=== PATIENT | male | born 1935 | race Caucasian/White ===

== ENCOUNTER 2020-01-24 16:26 | Emergency (ER) | payer OTHER ==
[~2020-01-24] VITALS: Ht 177.8 cm; Wt 67.1 kg
--- NOTE | 2020-01-24 16:45 | NUR ---
BIB RA 39, FOUND HOLDING ON TO A FENCE IN HOT WHEATHER CONDITION. ON ROOM AIR, BREATHING EVENLY AND UNLABORED. CONNECTED TO THE MONITOR AND PULSE OX. KEPT COMFORTABLE, WILL CONTINUE TO MONITOR ACCORDINGLY.
[2020-01-24 17:23] LABS: BASOPHILS % (AUTO) 0.8 % (0.0-2.0); EOSINOPHILS % (AUTO) 1.6 % (0.0-6.0); HEMATOCRIT 42 % (39-51); HEMOGLOBIN 13.6 g/dL (13.5-17.5); LYMPHOCYTES # (AUTO) 1.5 /CMM (0.8-4.8); LYMPHOCYTES % (AUTO) 25.4 % (20.0-44.0); MEAN CORPUSCULAR HGB CONC 33 g/dl (31.0-36.0); MEAN CORPUSCULAR VOLUME 88 fL (80-96); MONOCYTES # (AUTO) 0.4 /CMM (0.1-1.30); MONOCYTES % (AUTO) 6.6 % (2.0-12.0); NEUTROPHILS # (AUTO) 3.8 /CMM (1.8-8.9); NEUTROPHILS % (AUTO) 65.6 % (43.0-81.0); PLATELET COUNT (AUTO) 223 /CMM (150-450); RED BLOOD CELL COUNT(AUTO) 4.72 MIL/uL (4.5-6.0); WHITE BLOOD COUNT (AUTO) 5.8 K/uL (4.3-11.0)
[2020-01-24 17:26] LABS: CALCIUM, SERUM 8.9 mg/dL (8.5-10.1); CARBON DIOXIDE 24 mmol/L (21-32); CHLORIDE 107 mmol/L (98-107); CREATININE 1.2 mg/dL (0.6-1.3); GLUCOSE 107 mg/dL (74-106); POTASSIUM 4.6 mmol/L (3.5-5.1); SODIUM SERUM 140 mmol/L (136-145); UREA NITROGEN, BLOOD 35 mg/dL (7-18)
[2020-01-24] MEDS ORDERED: IV NS 0.9% 500 ML BAG IV ONE ×2 (17:30→19:30)
[2020-01-24 17:32] LABS: ALANINE AMINOTRANSFERASE 14 U/L (12-78); ALBUMIN 3.6 g/dL (3.4-5.0); ALKALINE PHOSPHATASE 53 U/L (46-116); ASPARTATE AMINOTRANSFERASE 16 U/L (15-37); BILIRUBIN,DIRECT 0.1 mg/dL (0.0-0.2); BILIRUBIN,TOTAL 0.6 mg/dL (0.2-1.0); TOTAL PROTEIN, SERUM 7.5 g/dL (6.4-8.2)
[2020-01-24 17:38] LABS: B-TYPE NATRIURETIC PEPTIDE 569 PG/ML (0-125)
[2020-01-24 18:04] LABS: APPEARANCE,URINE Clear (CLEAR); BILIRUBIN,URINE Negative (NEGATIVE); BLOOD, URINE Negative Ery/uL (NEGATIVE); COLOR,URINE Yellow (YELLOW); KETONES,URINE Negative (NEGATIVE); LEUKOCYTE ESTERASE ,URINE Negative (NEGATIVE); NITRITE, URINE Negative (NEGATIVE); PROTEIN,URINE Negative (NEGATIVE); UGLUCOSE Negative (NEGATIVE); UROBILINOGEN,URINE 0.2 EU/dL (0.2)
--- NOTE | 2020-01-24 19:17 | NUR ---
PT HAS [employer] INSURANCE GAVE MOVESHEET TO ADMITTING
--- NOTE | 2020-01-24 19:24 | NUR ---
Endorsed to next RN for katie.
--- NOTE | 2020-01-24 19:50 | NUR ---
COVID SWAB COLLECTED AND SENT TO LAB
--- NOTE | 2020-01-24 20:04 | NUR ---
PER KAHLIL THURSTON BULL RIDER PT SHE IS WORKING ON TRANSFERRING PT TO [facility].
[2020-01-24 20:12] LABS: CREATINE KINASE, TOTAL 104 U/L (39-308)
--- NOTE | 2020-01-24 20:53 | NUR ---
LAB CALLED REGARDING NEGATIVE COVID RESULT
--- NOTE | 2020-01-24 21:43 | NUR ---
CALL FROM BERTRAND WASHROOM OPERATOR. PT ACCEPTED TO [facility]. ROOM 449. #[phone]
--- NOTE | 2020-01-24 21:44 | NUR ---
[facility] ETA [id number]
--- NOTE | 2020-01-24 22:05 | NUR ---
report given to Sallie at [facility] . pt going to rm [phone]
--- NOTE | 2020-01-24 22:43 | NUR ---
[facility] AT BED SIDE TO DIRECTOR ON AIR THE PT. REPORT GIVEN /
--- NOTE | 2020-01-24 23:07 | NUR ---
while paramedics at bed side to transfer the pt, pt claimed he is doinf ok and he does not want to be at either hospital ([place] or [place]) and he just wanna leave. pt is alert, awake and oriented x 4. reported he is living with his "lady friend". knows his address and said "i have 300 dollar in my pocket" to go home with. road test done. pt ambulatory with steady gaits. pt refused the offer to assist w/ taxi. Dr. montesinos made aware . pt signed the AMA form and left the hospital against medical advice . Prior to discharge, IV was removed. Catheter intact and site benign. Pressure and 4x4 applied to site. No bleeding noted.
[2020-01-24 23:14] VITALS: BP 99/58
== END 2020-01-24 23:16 | disposition left against medical advice (07) ==
LOC: ER 16:29
DX: E86.0 Dehydration (principal); R41.82 Altered mental status, unspecified; F17.200 Nicotine dependence, unspecified, uncomplicated; R91.8 Other nonspecific abnormal finding of lung field; Z20.828 Contact with and (suspected) exposure to other viral communicable diseases
CPT/HCPCS: 36415; 70450; 71045; 80048; 80076; 81001; 82550; 83605; 83880; 84484; 85025; 87081; 87086; 87426; 93005; 96360; 99285; C9803; J7030; J7040; 81000-TC

== ENCOUNTER 2020-05-27 04:39 | Inpatient (IN) | payer MEDICARE, OTHER ==
[~2020-05-27] VITALS: Ht 165.1 cm; Wt 64.5 kg
--- NOTE | 2020-05-27 05:18 | NUR ---
pt moved to [facility] and connected to monitor. vss. pt not a reliable historian. ao to name and . 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 per ra "friend in apartment states he has dementia" noted rr even and unalbored. no sob noted. no nvd at this time. no acute distress noted. pt waiting for md cavanaugh.
--- NOTE | 2020-05-27 06:39 | NUR ---
pt moved er bed 11. sitter within line of sight.
--- NOTE | 2020-05-27 07:12 | NUR ---
pt appears comfortable. sleeping, easily arousable. sitter within line of sight.
--- NOTE | 2020-05-27 07:34 | NUR ---
REPORT GIVEN TO TIN ROMERO FOR CONTINUITY OF CARE. NO ACUTE DISTRESS NOTED.
--- NOTE | 2020-05-27 10:00 | NUR ---
pt is is altered. obtained 2 phone # but nobody is picking up. unable to verify adress.
--- NOTE | 2020-05-27 12:58 | NUR ---
patient altered so unable to verify address.
--- NOTE | 2020-05-27 13:01 | NUR ---
CALLED [phone] (NO ANSWER, LEFT VM), KYLEO CALLED [phone] (# NO LONGER AVAILABLE)
--- NOTE | 2020-05-27 16:28 | NUR ---
patient awake and able to converse but unable to verify address.
--- NOTE | 2020-05-27 16:38 | NUR ---
CALLED [phone] (NO ANSWER, LEFT VM)
--- NOTE | 2020-05-27 17:44 | NUR ---
PATIENT UNABLE TO GIVE ADDRESS. SAYS "I DON'T KNOW" WHEN ASKED
--- NOTE | 2020-05-27 18:39 | NUR ---
PATIENT BROUGHT VIA GURNEY TO CT SCAN
[2020-05-27 18:46] LABS: BASOPHILS % (AUTO) 0.6 % (0.0-2.0); HEMATOCRIT 42 % (39-51); HEMOGLOBIN 14.3 g/dL (13.5-17.5); LYMPHOCYTES # (AUTO) 0.9 /CMM (0.8-4.8); LYMPHOCYTES % (AUTO) 17.8 % (20.0-44.0); MEAN CORPUSCULAR HGB CONC 34 g/dl (31.0-36.0); MEAN CORPUSCULAR VOLUME 87 fL (80-96); MONOCYTES # (AUTO) 0.6 /CMM (0.1-1.30); MONOCYTES % (AUTO) 11.5 % (2.0-12.0); NEUTROPHILS # (AUTO) 3.6 /CMM (1.8-8.9); NEUTROPHILS % (AUTO) 70.1 % (43.0-81.0); PLATELET COUNT (AUTO) 156 /CMM (150-450); RED BLOOD CELL COUNT(AUTO) 4.86 MIL/uL (4.5-6.0); WHITE BLOOD COUNT (AUTO) 5.1 K/uL (4.3-11.0)
[2020-05-27 19:18] LABS: CALCIUM, SERUM 8.3 mg/dL (8.5-10.1); CARBON DIOXIDE 28 mmol/L (21-32); CHLORIDE 100 mmol/L (98-107); CREATININE 1.2 mg/dL (0.6-1.3); GLUCOSE 89 mg/dL (74-106); POTASSIUM 4.7 mmol/L (3.5-5.1); SODIUM SERUM 134 mmol/L (136-145); UREA NITROGEN, BLOOD 26 mg/dL (7-18)
[2020-05-27] MEDS ORDERED: QUET25TA PO (19:19)
[2020-05-27] MEDS ORDERED: BISA10SU11 RC (19:19)
[2020-05-27] MEDS ORDERED: TAMS-12 PO (19:19)
--- NOTE | 2020-05-27 19:20 | NUR ---
CALLED LAB FOR COVID SWAB
--- NOTE | 2020-05-27 19:20 | NUR ---
ENDORSEMENT GIVEN TO JACKI CASTLE FOR DUNG
[2020-05-27] MEDS ORDERED: LIDOCAINE 2% JEL UROJET 10 ML MM ONE (19:27)
[2020-05-27 19:31] LABS: ALANINE AMINOTRANSFERASE 14 U/L (12-78); ALBUMIN 3.1 g/dL (3.4-5.0); ALCOHOL, BLOOD < 3 mg/dL (0-0); ALKALINE PHOSPHATASE 60 U/L (46-116); ASPARTATE AMINOTRANSFERASE 15 U/L (15-37); BILIRUBIN,DIRECT 0.3 mg/dL (0.0-0.2); BILIRUBIN,TOTAL 0.8 mg/dL (0.2-1.0); TOTAL PROTEIN, SERUM 7.2 g/dL (6.4-8.2)
[2020-05-27 19:36] LABS: ACETAMINOPHEN 0 ug/ml (10-30)
--- NOTE | 2020-05-27 19:42 | NUR ---
URINE COLLECTED AND SENT TO LAB
--- NOTE | 2020-05-27 19:42 | NUR ---
COVID SWAB SENT TO LAB
[2020-05-27 19:46] LABS: BILIRUBIN,URINE NEGATIVE (NEGATIVE); COLOR,URINE YELLOW (YELLOW); LEUKOCYTE ESTERASE ,URINE NEGATIVE (NEGATIVE); NITRITE, URINE NEGATIVE (NEGATIVE); PROTEIN,URINE TRACE mg/dl (NEGATIVE); UGLUCOSE NEGATIVE (NEGATIVE)
[2020-05-27] MEDS ORDERED: HALOPERIDOL LACTATE INJ 5 MG/ML VIAL ONE (19:59)
[2020-05-27] MEDS ORDERED: diphenhydrAMINE HCL 50 MG/ML VIAL IM ONE (20:00)
[2020-05-27] MEDS ORDERED: HALOPERIDOL LACTATE INJ 5 MG/ML VIAL IM ONE (20:00)
[2020-05-27] MEDS ORDERED: IV NS 0.9% 1,000 ML IV ONE (20:00)
[2020-05-27] MEDS ORDERED: LORAZEPAM INJ 2 MG/ML VIAL ONE (20:01)
[2020-05-27] MEDS ORDERED: diphenhydrAMINE HCL 50 MG/ML VIAL ONE (20:02)
[2020-05-27 20:04] LABS: BACTERIA,URINE Few /HPF (None Seen); SQUAMOUS EPITHELIAL CELL,UR Rare /HPF (None Seen)
--- NOTE | 2020-05-27 20:46 | NUR ---
LAB CALLED REGARDING POSITIVE COVID RESULT
--- NOTE | 2020-05-27 22:02 | NUR ---
ATTEMPTED TO CONTACT DR. DE LA TORRE REGARDING ADMISSION. PER DR. DE LA TORRE, NOT DROP CREW LABORER. WILL CALL ANSWER SERVICE ([phone])
--- NOTE | 2020-05-27 22:09 | NUR ---
DR. BOYD SPEAKING WITH DR. HAWKINS
--- NOTE | 2020-05-27 23:28 | NUR ---
PT REPOSITIONED TO LEFT SIDE FOR COMFORT. VSS. NAD NOTED.
--- NOTE | 2020-05-28 01:47 | NUR ---
PT ON SUPINE POSITION FOR COMFORT. VSS. NAD NOTED
--- NOTE | 2020-05-28 03:07 | NUR ---
INFORMED DR HAWKINS REGARDING PT'S CHANGE OF CONDITION, HR IN THE 150'S. ORDER BY DR HAWKINS TO START ON AMIODARONE DRIP, PHARMACY TO DOSE.
--- NOTE | 2020-05-28 03:16 | NUR ---
CALLED OVERNIGHT PHARMACYFIORELLA FOR ORDER VERIFICATION
[2020-05-28] MEDS ORDERED: AMIODARONE 150 MG/3 ML VIAL IV ONE ×3 (03:20→03:35)
[2020-05-28] MEDS ORDERED: AMIODARONE 900 MG in IV D5W 482 ML IV PRN (03:30)
[2020-05-28] MEDS ORDERED: AMIODARONE 150 MG in IV D5W 100 ML IV ONE ×2 (03:30→07:30)
--- NOTE | 2020-05-28 03:50 | NUR ---
AMIODARONE 150 MG IV GIVEN OVER [address] YAN'S ORDER. OVERNIGHT PHARMACY VERIFIED DOSAGE.
[2020-05-28] MEDS ORDERED: ONDANSETRON HCL/PF 4 MG/2 ML VIAL IV PRN (04:00)
[2020-05-28] MEDS ORDERED: HYDROCODONE/APAP 5/325MG TABLET PO PRN (04:00)
--- NOTE | 2020-05-28 06:12 | NUR ---
PT REPOSITIONED TO RIGHT SIDE FOR COMFORT. VSS. NAD NOTED.
[2020-05-28 06:37] LABS: BASOPHILS # (AUTO) 0.1 /CMM (0.0-0.2); BASOPHILS % (AUTO) 0.9 % (0.0-2.0); HEMATOCRIT 42 % (39-51); HEMOGLOBIN 14.2 g/dL (13.5-17.5); LYMPHOCYTES # (AUTO) 0.8 /CMM (0.8-4.8); LYMPHOCYTES % (AUTO) 12.3 % (20.0-44.0); MEAN CORPUSCULAR HGB CONC 34 g/dl (31.0-36.0); MEAN CORPUSCULAR VOLUME 87 fL (80-96); MONOCYTES # (AUTO) 0.8 /CMM (0.1-1.30); MONOCYTES % (AUTO) 11.6 % (2.0-12.0); NEUTROPHILS % (AUTO) 75.2 % (43.0-81.0); PLATELET COUNT (AUTO) 145 /CMM (150-450); RED BLOOD CELL COUNT(AUTO) 4.86 MIL/uL (4.5-6.0); WHITE BLOOD COUNT (AUTO) 6.6 K/uL (4.3-11.0)
[2020-05-28 06:52] LABS: ALBUMIN 2.6 g/dL (3.4-5.0); CALCIUM, SERUM 7.8 mg/dL (8.5-10.1); CREATININE 1.1 mg/dL (0.6-1.3); POTASSIUM 4.2 mmol/L (3.5-5.1); TOTAL PROTEIN, SERUM 6.4 g/dL (6.4-8.2)
[2020-05-28 07:25] LABS: C-REACTIVE PROTEIN 7.2 mg/dL (0.0-0.9)
[2020-05-28] MEDS ORDERED: AMIODARONE 450 MG in IV D5W 250 ML IV PRN (07:30)
[2020-05-28] MEDS ORDERED: BISACODYL SUPP (10 MG) 10 MG/SUPP.RECT SUPP.RECT RC PRN (09:30)
[2020-05-28] MEDS ORDERED: DEXAMETHASONE SOD PHOSPHATE 4 MG/ML VIAL IV SCH (10:00)
[2020-05-28 10:12] LABS: ABG PCO2 27.2 mmHg (35.0-45.0); ABG PH 7.429 (7.350-7.450); ABG PO2 66.2 mmHg (75.0-100.0); COHb 0.4 % (0.5-1.5); MetHb 0.5 % (0.0-1.5); O2Hb 92.2 % (94.0-97.0); SITE, ABG Right Radial; VENT MODE, BG room air
--- NOTE | 2020-05-28 13:34 | NUR ---
Boiler Water Tester Note: Pt is an 84 year old male who was admitted to [facility] on 05/28/20 due to acute encepalopathy. Pt is demented and was oriented x1. Pt was also covid positive so SW maintained a safe distance. SW was not able to properly assess the pt due to his condition so SW looked through the pts chart. Pt was positive for methamphetamines so SW included substance abuse referrals in the pts chart.
--- NOTE | 2020-05-28 19:49 | NUR ---
pt cleaned and turned and repositioned. pt connected to monitor. pt appears comfortable no acute distress noted.
[2020-05-28] MEDS: AMIODARONE HCL 200 MG TABLET PO SCH (21:04)
[2020-05-28] MEDS: TAMSULOSIN 0.4 MG CAP.SR.24H PO SCH (21:05)
--- NOTE | 2020-05-28 21:05 | NUR ---
PT MEDICATED ORDERED. PT DENIES PAIN OR DISCOMFORT AT THIS TIME. NO ACUTE DISTRESS NOTED, RESP EVEN AND UNLABORED. CALL LIGHT WITHIN REACH. WILL CONTINUE TO MONITOR PT.
--- NOTE | 2020-05-28 22:16 | NUR ---
ORAL CARE DONE, REPOSITIONED PT.
--- NOTE | 2020-05-29 03:51 | NUR ---
TOTAL PT CARE DONE, LARGE AMOUT OF SOFT BM NOTED. PT REMAINS ON CARDIAC MONITORING, CONTINUOUS POX. CALL LIGHT WITHIN REACH WILL CONITNUE TO MONITOR PT CLOSELY.
--- NOTE | 2020-05-29 05:49 | NUR ---
PT ASLEEP, NO ACUTE DISTRESS NOTED, RESP EVEN AND UNLABORED. PT REMAINS ON CARDIAC MONITORING, CONTINUOUS POX. CALL LIGHT WITHIN REACH. WILL CONTINUE TO MONITOR PT CLOSELY.
[2020-05-29 05:54] LABS: BASOPHILS % (AUTO) 0.3 % (0.0-2.0); HEMATOCRIT 42 % (39-51); LYMPHOCYTES # (AUTO) 0.7 /CMM (0.8-4.8); MEAN CORPUSCULAR HGB CONC 34 g/dl (31.0-36.0); MEAN CORPUSCULAR VOLUME 87 fL (80-96); MONOCYTES # (AUTO) 0.8 /CMM (0.1-1.30); NEUTROPHILS # (AUTO) 7.1 /CMM (1.8-8.9); NEUTROPHILS % (AUTO) 82.7 % (43.0-81.0); PLATELET COUNT (AUTO) 167 /CMM (150-450); RED BLOOD CELL COUNT(AUTO) 4.79 MIL/uL (4.5-6.0); WHITE BLOOD COUNT (AUTO) 8.6 K/uL (4.3-11.0)
[2020-05-29 06:11] LABS: ALBUMIN 2.6 g/dL (3.4-5.0); BILIRUBIN,TOTAL 0.6 mg/dL (0.2-1.0); CREATININE 1.1 mg/dL (0.6-1.3); POTASSIUM 4.6 mmol/L (3.5-5.1); TOTAL PROTEIN, SERUM 6.5 g/dL (6.4-8.2)
[2020-05-29 06:32] LABS: THYROID STIMULATING HORMONE 0.618 uIU/mL (0.358-3.74)
[2020-05-29 06:58] LABS: C-REACTIVE PROTEIN 7.4 mg/dL (0.0-0.9)
--- NOTE | 2020-05-29 07:19 | NUR ---
report given to TIN Callahan. no acute distress noted.
[2020-05-29] MEDS: AMIODARONE HCL 200 MG TABLET PO SCH ×2 (09:00→23:54)
[2020-05-29] MEDS ORDERED: DEXAMETHASONE SOD PHOSPHATE 10 MG/ML VIAL IV SCH (09:00)
[2020-05-29] MEDS: APIXABAN 5 MG TABLET PO SCH ×2 (09:00→17:13)
--- NOTE | 2020-05-29 10:11 | NUR ---
NO acute changes, Status quo. Await admission.
[2020-05-29] MEDS: DEXAMETHASONE SOD PHOSPHATE 10 MG/ML VIAL IV SCH (14:00)
--- NOTE | 2020-05-29 14:00 | NUR ---
Beddings changed/Cleaned and encouraged po fluids at bedside. Able to tolerate diet w/o any difficulty. Does get a little out of breath with activity. Maintained on O2/NC to keep sats >94%
--- NOTE | 2020-05-29 19:24 | NUR ---
Report to TIN Diop for continuity of care
--- NOTE | 2020-05-29 21:12 | NUR ---
REPORT CALLED TO HYPERBARIC TECHNICIAN AIDA. WILL TRANSPORT PT VIA [facility] PTOROTOCOL.
--- NOTE | 2020-05-29 21:44 | NUR ---
PT TRANSFERRED PER [facility] PR[facility]
--- NOTE | 2020-05-29 21:49 | NUR ---
RN NOTE RECEIVED PATIENT FROM ER WITH DX OF ACUTE ENCEPHALOPATHY. ALERT AND ORIENTED TO SELF. NO RESP DISTRESS NOTED, O2 GIVEN VIA NC AT 3LPM. DENIES ANY SOB NOR PAIN. CONNECTED TO TELE MONITOR SR HR 70. WITH IV ON LEFT FA G 18, PATENT AND INTACT. KEPT CLEAN AND COMFORTABLE IN BED. VS STABLE. BP 123/57 RR 20 P 70 T 97. 8. ALL SAFETY MEASURES IMPLEMENTED PER PROTOCOL. CALL LIGHT WITHIN REACH. BED LOCKED IN LOWEST POSITION. ISOLATION PRECAUTION OBSERVED FOR COVID.
[2020-05-29] MEDS: TAMSULOSIN 0.4 MG CAP.SR.24H PO SCH (23:52)
[2020-05-30] VITALS (7 sets, daily range): BP systolic 95–119; BP diastolic 48–74
[2020-05-30 05:59] LABS: CALCIUM, SERUM 8.3 mg/dL (8.5-10.1); CREATININE 1.3 mg/dL (0.6-1.3); POTASSIUM 4.2 mmol/L (3.5-5.1)
[2020-05-30 06:08] LABS: BASOPHILS % (AUTO) 0.1 % (0.0-2.0); HEMATOCRIT 44 % (39-51); HEMOGLOBIN 14.5 g/dL (13.5-17.5); LYMPHOCYTES # (AUTO) 0.5 /CMM (0.8-4.8); LYMPHOCYTES % (AUTO) 3.2 % (20.0-44.0); MEAN CORPUSCULAR HGB CONC 33 g/dl (31.0-36.0); MEAN CORPUSCULAR VOLUME 87 fL (80-96); MONOCYTES # (AUTO) 0.8 /CMM (0.1-1.30); NEUTROPHILS # (AUTO) 14.2 /CMM (1.8-8.9); NEUTROPHILS % (AUTO) 91.7 % (43.0-81.0); PLATELET COUNT (AUTO) 207 /CMM (150-450); RED BLOOD CELL COUNT(AUTO) 5.04 MIL/uL (4.5-6.0); WHITE BLOOD COUNT (AUTO) 15.5 K/uL (4.3-11.0)
--- NOTE | 2020-05-30 06:28 | NUR ---
RN NOTE START A NEW IV LINE ON RIGHT HAND #22 G WITH GOOD BLOOD RETURN,NO SWELLING,NO INFILTRATION CONTINUE TO MONITOR.
--- NOTE | 2020-05-30 07:12 | NUR ---
RN CLOSING NOTE PATIENT REMAINS ALERT ORIENTED X2 VERBALLY RESPONSIVE ON 3L OXYGEN VIA NASAL CANNULA,O2:94% COVID POSITIVE ON CONTACT/DROPLET ISOLATION, IV SITE IS ON LEFT FOREARM AND RIGHT HAND INTACT PATENT,ALL DUE MEDS GIVEN MD ORDERED,KEPT CLEAN AND DRY ALL THE TIME,KEPT CALL LIGHT WITHIN REACH,BED IN LOW POSITON AND LOCKED,BED ALARM IS ON ALL NEEDS MET,ENDORSE NEXT COMING SHIFT FOR CONTINUATION OF CARE.
--- NOTE | 2020-05-30 08:00 | NUR ---
AIRLINE ATTENDANT AM OPENING NOTES PATIENT REMAINS ALERT ORIENTED X2 VERBALLY RESPONSIVE ON 3L OXYGEN VIA NASAL CANNULA,O2:96-98% COVID POSITIVE ON CONTACT/DROPLET ISOLATION, IV SITE IS ON LEFT FOREARM AND RIGHT HAND INTACT PATENT,KEPT CLEAN AND DRY ALL THE TIME,KEPT CALL LIGHT WITHIN REACH,BED IN LOW POSITON AND LOCKED,BED ALARM IS ON.NEEDS ANTICIPATED AND ATTENDED. WILL CONTINUE TO MONITOR.
[2020-05-30] MEDS: DEXAMETHASONE SOD PHOSPHATE 10 MG/ML VIAL IV SCH (09:00)
[2020-05-30] MEDS ORDERED: DEXA6TAB6 PO (09:00)
[2020-05-30] MEDS: AMIODARONE HCL 200 MG TABLET PO SCH (09:00)
--- NOTE | 2020-05-30 09:00 | NUR ---
SEEN BY DR DE LA TORRE WITH ORDERS FOR DC TO SNF. PT'S O2 SAT ON ROOM AIR WAS 92% TOLERATING WELL WITH NO DISTRESS.WITH OCCASIONAL COUGHING NOTED.
[2020-05-30] MEDS: APIXABAN 5 MG TABLET PO SCH ×2 (09:03→18:24)
[2020-05-30] MEDS ORDERED: APIX5TAB PO (09:05)
[2020-05-30] MEDS ORDERED: AMIO200T5 PO (09:05)
--- NOTE | 2020-05-30 11:20 | NUR ---
PT IS FOR DISCHARGE TO SNF PER DR DE LA TORRE. PT HAS FEVER OF 101.2.NOTIFIED DR DE LA TORRE AND MADE AWARE.TRIED CALLING PT'S NIECE AND ROOMATE, KATHYA CHEUNG BUT THE LINE WAS ALWAYS BUSY FOR THE 3RD TIME. WILL MONITOR.
[2020-05-30] MEDS: ACETAMINOPHEN 325 MG TABLET PO PRN (11:38)
--- NOTE | 2020-05-30 11:38 | NUR ---
ADMINISTERED TYLENOL 650 MG PO BUT PT SPITTED THEM OUT.INSPITE OF EXPLAINING THE RISKS AND BENEFITS.REFUSED ORAL FLUIDS AND JUICES TOO.PT HAS VERY POOR ORAL INTAKE AND REFUSED TO EAT LUNCH.PT ATE 30% Addendum: 05/30/20 at 1322 by JASON ROSALES RN PT ATE 20 BREAKFAST.
--- NOTE | 2020-05-30 11:40 | NUR ---
COOLING MEASURES RENDERED.
--- NOTE | 2020-05-30 12:30 | NUR ---
RECHECKED PT'S TEMP 99.6 .WILL CONTINUE TO MONITOR.SPOKE TO TECHNOLOGY MANAGER,MANUEL AND BERTRNAD TECHNOLOGY MANAGER MAKING THEM AWARE OF PT'S TEMP.PT REFUSED ANY ORAL INTAKE. PT JUST SLEEPS WITH NO DISTRESS. TRIED CALLING PT'S NIECE/ROOMATE KATHYA CHEUNG BUT THE LINE WAS ALWAYS BUSY 3X.
--- NOTE | 2020-05-30 18:59 | NUR ---
CHANGE OF SHIFT REPORT PT RESTING COMFORTABLY IN BED. NO S/S OR C/O PAIN OR DISTRESS NOTED. SIDE RAILS UP X2, CALL LIGHT LEFT WITHIN REACH. PT KEPT CLEAN, DRY, AND COMFORTABLE. PT CALM AND COOPERATIVE. PT COMPLIANT WITH MEDICATIONS. NEW ORDER OF PUREE DIET. NO SIGNIFICANT CHANGES SINCE PREVIOUS SHIFT. WILL GIVE REPORT TO RAMIRO CASTLE.
--- NOTE | 2020-05-30 19:35 | NUR ---
POLYGRAPH TECHNICIAN NOTES RECEIVED RESTING COMFORTABLY ON BED,WITH HOB ELEVATED,BREATHING NON LABORED,O2 SAT WNL ON ROOM AIR.PECHANGA ON BOTH EARS.SALINE LOCK RIGHT HAND INTACT AND PATENT.FALL PRECAUTION OBSERVED,BED ON LOWEST POSITION AND LOCKED.DROPLET INFECTION FOR COVID 19 POSITIVE.WILL CONTINUE TO MONITOR STATUS.
[2020-05-30] MEDS: TAMSULOSIN 0.4 MG CAP.SR.24H PO SCH (21:12)
--- NOTE | 2020-05-30 22:00 | NUR ---
JUVENILE COURT LIAISON NOTES SLEEPING,KEPT WARM AND COMFORTABLE.
[2020-05-31] VITALS: BP 155/58
[2020-05-31 04:00] VITALS: BP 96/44
--- NOTE | 2020-05-31 06:57 | NUR ---
CLIENT SERVICES SPECIALIST NOTES NO SIGNIFICANT CHANGE IN STATUS,AFEBRILE,97.7 THE LATEST.D/C PLAN TO HOME HOME WITH NIECE.ENDORSED TO DAY NURSE FOR DUNG.
--- NOTE | 2020-05-31 07:30 | NUR ---
HUMAN RESOURCE CONSULTANT NOTES PATIENT RECEIVED IN BED, SLEEPING EASILY AWAKEN. NO RESPIRATORY DISTRESS AT THIS TIME. ON CAFETERIA TABLE ATTENDANT, SINUS RHYTHM 60'S. PATIENT SKIN WARM AND DRY TO TOUCH. IV ACCESS INTACT AND PATENT. PATIENT PRESENTING WITH NO PAIN OR DISCOMFORT AT THIS TIME. SAFETY PRECAUTIONS IMPLEMENTED WITH BED LOCKED, BILATERAL SIDE RAILS UP, BED ALARM ON, BED IN THE LOWEST POSITION AND CALL LIGHT WITHIN EASY REACH. WILL CONTINUE TO MONITOR.
[2020-05-31 08:00] VITALS: BP 101/59
[2020-05-31] MEDS: AMIODARONE HCL 200 MG TABLET PO SCH (09:00)
[2020-05-31] MEDS: APIXABAN 5 MG TABLET PO SCH ×2 (09:31→16:29)
[2020-05-31] MEDS: DEXAMETHASONE SOD PHOSPHATE 10 MG/ML VIAL IV SCH (09:31)
--- NOTE | 2020-05-31 11:00 | NUR ---
AMMONIA NITRATE OPERATOR NOTES SPOKE WITH CASE MANAGEMENT, MARGY, PATIENT CAN NOT BE DISCHARGED DUE TO HAVING A FEVER, NEED TO MONITOR PATIENT'S TEMPERATURE FOR 72 HOURS. CHARGE NURSE MADE AWARE IN WHICH PATIENT DISCHARGE IS HELD, WILL CONTINUE TO MONITOR PATIENT.
[2020-05-31 12:00] VITALS: BP 102/53
[2020-05-31 16:00] VITALS: BP 114/55
--- NOTE | 2020-05-31 18:41 | NUR ---
INTELLIGENCE RESEARCH SPECIALIST NOTES PATIENT IN BED, NO RESPIRATORY DISTRESS AT THIS TIME WITH EVEN NON-LABORED BREATHING. ON DOCUMENT CONTROL CLERK, SINUS RHYTHM 65. PATIENT SKIN KEPT CLEAN, WARM AND DRY TO TOUCH. IV ACCESS INTACT AND PATENT. MET ALL OF PATIENT'S NEEDS. PATIENT PRESENTING WITH NO PAIN OR DISCOMFORT AT THIS TIME. SAFETY PRECAUTIONS IMPLEMENTED WITH BED LOCKED, BILATERAL SIDE RAILS UP, BED ALARM ON, BED IN THE LOWEST POSITION AND CALL LIGHT WITHIN EASY REACH. WILL ENDORSE PLAN OF CARE TO UPCOMING RN.
--- NOTE | 2020-05-31 19:40 | NUR ---
GRAIN PICKER NOTES RECEIVED ON BED,ON SEMI FOWLERS POSITION,BREATHING REGULAR,NOT IN ANY FORM DISTRESS.SALINE LOCK BOTH ARMS INTACT AND PATENT./DC ON HOLD TILL 72 HOURS FOR FEVER MONITORING.ISOLATION FOR COVID 19 POSITIVE.FALL PRECAUTION OBSERVED.BED ALARM.WILL CONTINUE TO MONITOR STATUS.
[2020-05-31 20:00] VITALS: BP 115/69
--- NOTE | 2020-05-31 21:21 | NUR ---
PIANO REGULATOR NOTES SR-68 ON TELE MONITOR
[2020-05-31] MEDS: TAMSULOSIN 0.4 MG CAP.SR.24H PO SCH (21:52)
--- NOTE | 2020-05-31 22:46 | NUR ---
STUDENT SUPPORT ADVISOR NOTES PAIN MANAGEMENT SCREAMING,PAIN ON SACRAL AREA,REPOSITION,NORCO 5/325MG,1 TAB CRUSHED AND GIVEN WITH APPLE SAUCE.TAKEN WELL.NEGATIVE FOR ASPIRATION
[2020-06-01] VITALS: BP 105/58
[2020-06-01 04:00] VITALS: BP 100/60
--- NOTE | 2020-06-01 06:41 | NUR ---
MS RN NOTES SLEPT WITH INTERVALS,OFFERED MORNING CARE BUT REFUSED,ALMOST KICK FOOD SAFETY FIELD SPECIALIST ON THE FACE.AFEBRILE THRU OUT SHIFT.POSSIBLE D/C TODAY.IN NO ACUTE DISTRESS.
--- NOTE | 2020-06-01 07:03 | NUR ---
DAIRY TECHNOLOGIST OPENING NOTES RECEIVED PT AWAKE IN BED AT THIS TIME. PT X1-2, PT ABLE TO HOLD SIMPLE COMMUNICATION. NO SOB NOTED, NO S/S OF ANY ACUTE DISTRESS NOTED. NO C/O PAIN AT THIS TIME. RESPIRATIONS ARE EVEN AND UNLABORED. PT STABLE ON RA. PT NOTED ON EXTERNAL TELE CHICKEN DRESSER READING SR IN THE 60S. IV ACCESS NOTED IN RIGHT HAND G#22 AND LFA G#18, BOTH INTACT, PATENT AND FLUSHING WELL. SAFETY PRECAUTION IN PLACE AND MAINTAINED AT ALL TIMES. BED IN LOWEST LOCKED POSITION, HOB ELEVATED, SIDE RAILS UP X 2, CALL LIGHT AND TABLE WITHIN REACH. WILL CONTINUE TO MONITOR
[2020-06-01 08:00] VITALS: BP 132/70
[2020-06-01] MEDS: DEXAMETHASONE SOD PHOSPHATE 10 MG/ML VIAL IV SCH (08:34)
[2020-06-01] MEDS: APIXABAN 5 MG TABLET PO SCH ×2 (08:35→16:23)
[2020-06-01] MEDS: AMIODARONE HCL 200 MG TABLET PO SCH (08:38)
[2020-06-01 12:00] VITALS: BP 123/81
--- NOTE | 2020-06-01 12:19 | NUR ---
SKYE RASHEED ([phone]), PT's NIECE CALLED AND WAS UPDATED ON PT's STATUS. PER PT's NIECE "I CANNOT PROVIDE CARE AND I NEED CM TO GET PLACEMENT FOR MY UNCLE". WANG OBRIEN MADE AWARE, WANG OBRIEN WILL FOLLOW UP WITH PT's INSURANCE. WILL CONTINUE TO MONITOR
[2020-06-01 16:00] VITALS: BP 116/62
--- NOTE | 2020-06-01 19:00 | NUR ---
MEDICAL OFFICE TECHNOLOGY INSTRUCTOR CLOSING NOTES PT RESTING IN BED AT THIS TIME. PT REMAINED STABLE THROUGHOUT SHIFT. ALL CARE, NEED, MEDICATIONS AND TREATMENT ADMINISTERED ANTICIPATED PER ORDER. PT KEPT CLEAN AND DRY. PT REPOSITIONED Q2HR AND PRN. ASPIRATION AND SAFETY PRECAUTION IN PLACE AND MAINTAINED AT ALL TIMES. BED IN LOWEST LOCKED POSITION, HOB ELEVATED, SIDE RAILS UP X 2, CALL LIGHT AND TABLE WITHIN REACH. WILL ENDORSE TO PRODUCE WEIGHER NURSE FOR DUNG
--- NOTE | 2020-06-01 19:30 | NUR ---
TELE/RN OPENING NOTES RECEIVED PATIENT IN BED RESTING. PATIENT IS ALERT AND ORIENTED X 1. PATIENT BREATHING IS EVEN AND UNLABORED. NO SIGNS OF SOB OR RESPIRATORY DISTRESS NOTED. PATIENT IN NO SIGNS OF DISTRESS. IV ACCESS ON RIGHT HAND #22G, LEFT FA #18G. SAFETY MEASURES ARE IN PLACE, BED IS LOCKED AND PLACED IN THE LOW POSITION, SIDE RAILS UP X 2, CALL LIGHT WITH IN REACH. WILL CONTINUE TO MONITOR THROUGH OUT SHIFT.
[2020-06-01 20:00] VITALS: BP 116/72
[2020-06-01] MEDS: TAMSULOSIN 0.4 MG CAP.SR.24H PO SCH (21:49)
[2020-06-02] VITALS: BP 131/84
[2020-06-02 04:00] VITALS: BP 123/72
--- NOTE | 2020-06-02 06:40 | NUR ---
TELE/RN CLOSING NOTES PATIENT IN BED RESTING. PATIENT IS ALERT AND ORIENTED X 1-2. PATIENT BREATHING IS EVEN AND UNLABORED. NO SIGNS OF SOB OR RESPIRATORY DISTRESS NOTED. TELE READING SR 63S. PATIENT IN NO SIGNS OF DISTRESS. IV ACCESS ON RIGHT HAND #22G INTACT FLUSHING WELL. ALL NEED HAVE BEEN MET DURING SHIFT. SAFETY MEASURES ARE IN PLACE, BED IS LOCKED AND PLACED IN THE LOW POSITION, SIDE RAILS UP X 2, CALL LIGHT WITH IN REACH. WILL ENDORSE CARE TO DAY SHIFT NURSE.
[2020-06-02 07:16] LABS: BASOPHILS % (AUTO) 0.1 % (0.0-2.0); HEMATOCRIT 41 % (39-51); HEMOGLOBIN 13.6 g/dL (13.5-17.5); LYMPHOCYTES # (AUTO) 0.5 /CMM (0.8-4.8); LYMPHOCYTES % (AUTO) 4.2 % (20.0-44.0); MEAN CORPUSCULAR HGB CONC 34 g/dl (31.0-36.0); MEAN CORPUSCULAR VOLUME 87 fL (80-96); MONOCYTES # (AUTO) 0.8 /CMM (0.1-1.30); NEUTROPHILS # (AUTO) 11.2 /CMM (1.8-8.9); NEUTROPHILS % (AUTO) 89.7 % (43.0-81.0); PLATELET COUNT (AUTO) 217 /CMM (150-450); RED BLOOD CELL COUNT(AUTO) 4.66 MIL/uL (4.5-6.0); WHITE BLOOD COUNT (AUTO) 12.5 K/uL (4.3-11.0)
--- NOTE | 2020-06-02 07:30 | NUR ---
TELE/RN OPENING NOTE Received patient resting in bed, A&O x 1-2. Denies any pain/discomfort at this time. Breathing even and non-labored on 3L oxygen via NC. No respiratory or cardiac distress noted. On tele monitor, reading SR 67. R hand #22 g IV access noted, patent and intact, and flushing well. Bed locked to its lowest position, side rails x 2 up, call light in hand. Will continue with current medical management.
[2020-06-02 08:00] VITALS: BP 113/67
[2020-06-02 08:22] LABS: CALCIUM, SERUM 8.7 mg/dL (8.5-10.1); CREATININE 1.2 mg/dL (0.6-1.3); POTASSIUM 5.6 mmol/L (3.5-5.1)
[2020-06-02] MEDS: APIXABAN 5 MG TABLET PO SCH ×2 (09:58→17:57)
[2020-06-02] MEDS: AMIODARONE HCL 200 MG TABLET PO SCH (09:59)
[2020-06-02] MEDS: DEXAMETHASONE SOD PHOSPHATE 10 MG/ML VIAL IV SCH (09:59)
[2020-06-02 12:00] VITALS: BP 112/60
--- NOTE | 2020-06-02 12:51 | NUR ---
TELE/RN NOTE Patient tolerating well on room air, saturating at 94%. No SOB or respiratory distress noted.
[2020-06-02 16:00] VITALS: BP 102/64
--- NOTE | 2020-06-02 18:56 | NUR ---
TELE/RN CLOSING NOTE Patient resting in bed, A&O x 1-2. All needs met and attended to. Denies any pain/discomfort throughout shift. Breathing even and non-labored on RA. No respiratory or cardiac distress noted. On tele monitor, reading SR 80. R hand #22 g IV access noted, patent and intact, and flushing well. Fall precautions maintained. Will endorse to overnight houseperson nurse.
--- NOTE | 2020-06-02 19:30 | NUR ---
advanced practice psychiatric nurse opening notes Received Pt from morning nurse. Pt is resting in bed comfortably. Pt is alert and orientedX1. Breathing is even and unlabored on room air. No SOB. No S/S of distress noted. Tele monitor showed SR hr at 80 bpm. IV sites at R hand is clean, intact, flushes well and SL. Safety precautions is maintained. Bed at low position, brakes locked, side rails upX2 and call light is within reach. Will continue to monitor.
[2020-06-02 20:00] VITALS: BP 121/69
[2020-06-02] MEDS: TAMSULOSIN 0.4 MG CAP.SR.24H PO SCH (21:01)
[2020-06-02] MEDS: ACETAMINOPHEN 325 MG TABLET PO PRN (21:38)
--- NOTE | 2020-06-02 21:38 | NUR ---
supervising deputy notes Pt complaining of headache and requesting pain meds. Administered tylenol 500 mg/po/prn as ordered for headache. Safety precautions is maintained. Will continue to monitor.
--- NOTE | 2020-06-02 22:06 | NUR ---
ibm websphere commerce developer notes Pt keep screaming and screaming. Pt does not follow command. Instructed Pt not to scream. reality orientation provided. Pt keep screaming. Turned and repositioned for comfort. Snacks is given. Pt still screaming. Informed and notified Lobo Strickland INVESTIGATOR OPERATOR regarding Pt condition. INVESTIGATOR OPERATOR ordered ativan 1 mg/iv push/prn/ Q 6hr. Order carried out. Charge nurse is aware and informed. Will continue to monitor.
--- NOTE | 2020-06-02 22:19 | NUR ---
pastoral counselor notes Called [facility] and spoke with Monica to verify ativan 1 mg/iv push/ prn/Q 6hr.
[2020-06-02] MEDS: LORAZEPAM INJ 2 MG/ML VIAL IV PRN (22:31)
--- NOTE | 2020-06-02 22:31 | NUR ---
visual communications instructor notes Pt keep screaming loudly, agitated easily and does not follow command. Reality orientation provided. Pt keep screaming loudly and agitated easily. Administered ativan inj 1 mg/iv push/prn/ Q 6 hr as ordered. VS is stable. Will continue to monitor.
[2020-06-03] VITALS: BP 111/41
[2020-06-03 04:00] VITALS: BP 116/66
--- NOTE | 2020-06-03 06:43 | NUR ---
compounder flavorings closing notes Pt is resting in bed comfortably. Pt is alert and orientedX1. Breathing is even and unlabored on room air. No SOB. No S/S of distress noted. Tele monitor showed SR hr at 75 bpm. VS is stable. Afebrile. IV sites at R hand is clean, intact, flushes well and SL. Routine meds were given as ordered. Kept Pt clean, dry and comfortable. All needs met and attended. Safety precautions is maintained. Bed at low position, brakes locked, side rails upX2 and call light is within reach. Will endorse to morning nurse for DUNG.
--- NOTE | 2020-06-03 07:30 | NUR ---
business intelligence manager opening notes Patient is in bed, awake and verbally responsive. Alert and oriented X1, noted w/ episode of yelling/screaming as endorsed by previous shift RN. Breathing is even and unlabored, tolerating room air. On tele monitoring, reading of SR, hr at 70's. IV line on R hand #22 intact and patent. Safety precautions in place: bed at lowest position, side rails up X2, call light is within reach. Will continue to monitor.
[2020-06-03 08:00] VITALS: BP 109/60
[2020-06-03] MEDS: LORAZEPAM INJ 2 MG/ML VIAL IV PRN (08:12)
[2020-06-03] MEDS: AMIODARONE HCL 200 MG TABLET PO SCH (08:26)
[2020-06-03] MEDS: APIXABAN 5 MG TABLET PO SCH ×2 (08:32→16:07)
[2020-06-03] MEDS: DEXAMETHASONE SOD PHOSPHATE 10 MG/ML VIAL IV SCH (08:33)
[2020-06-03 12:00] VITALS: BP 103/56
[2020-06-03 16:00] VITALS: BP 103/61
--- NOTE | 2020-06-03 18:55 | NUR ---
rug frame mounter closing notes Patient is in bed resting, awake and verbally responsive. Alert and oriented X1, confused, w/ episode of yelling/screaming during the shift. Breathing is even and unlabored, tolerating room air. On tele monitoring, reading of SR, hr at mid 70's, no cardiac distress. IV line on LFA #22 intact and patent. Fluids provided during the shift. Safety precautions maintained: bed at lowest position, side rails up X2, call light is within reach. Will endorse ti night monitor rn for katie.
--- NOTE | 2020-06-03 19:40 | NUR ---
RN NOTES RECEIVED PT IN BED ALERT AND ORIENTED TO SELF. YELLING, PT UNABLE TO SAY WHAT HE WANTS. BREATHING EVEN AND UNLABORED, NO SOB NOTED. TELE MONITOR SHOWS SR HR 73. LFA G 22 PATENT AND INTACT. FLUSHED. NO SIGNS OF INFECTION. KEPT COMFORTABLE IN BED. ALL SAFETY MEASURES IMPLEMENTED PER PROTOCOL. CALL LIGHT WITHIN REACH. BED LOCKED IN LOWEST POSITION. SIDE RAILS UP X 2.
[2020-06-03 20:00] VITALS: BP 122/69
[2020-06-03] MEDS: ACETAMINOPHEN 325 MG TABLET PO PRN (21:08)
[2020-06-03] MEDS: TAMSULOSIN 0.4 MG CAP.SR.24H PO SCH (21:08)
--- NOTE | 2020-06-03 21:08 | NUR ---
RN NOTE NOTED WITH ELEVATED BODY TEMP 100.4. TYLENOL 500 MG GIVEN ORDERED. NO CHANGES IN LOC NOTED. OFFERED FLUIDS.
--- NOTE | 2020-06-03 22:00 | NUR ---
RN NOTE BODY TEMP WENT DOWN TO 99.1
[2020-06-04] VITALS (7 sets, daily range): BP systolic 90–116; BP diastolic 45–64
[2020-06-04 06:42] LABS: CALCIUM, SERUM 8.4 mg/dL (8.5-10.1); CREATININE 1.1 mg/dL (0.6-1.3)
[2020-06-04 06:55] LABS: C-REACTIVE PROTEIN 9.6 mg/dL (0.0-0.9)
[2020-06-04 07:01] LABS: BASOPHILS % (AUTO) 0.2 % (0.0-2.0); EOSINOPHILS % (AUTO) 0.2 % (0.0-6.0); HEMATOCRIT 41 % (39-51); HEMOGLOBIN 13.8 g/dL (13.5-17.5); LYMPHOCYTES # (AUTO) 0.5 /CMM (0.8-4.8); MEAN CORPUSCULAR HGB CONC 33 g/dl (31.0-36.0); MEAN CORPUSCULAR VOLUME 87 fL (80-96); MONOCYTES # (AUTO) 0.8 /CMM (0.1-1.30); MONOCYTES % (AUTO) 9.6 % (2.0-12.0); NEUTROPHILS # (AUTO) 7.4 /CMM (1.8-8.9); PLATELET COUNT (AUTO) 234 /CMM (150-450); RED BLOOD CELL COUNT(AUTO) 4.76 MIL/uL (4.5-6.0); WHITE BLOOD COUNT (AUTO) 8.8 K/uL (4.3-11.0)
--- NOTE | 2020-06-04 07:35 | NUR ---
FIRE PROTECTION FABRICATOR OPENING NOTES RECEIVED PATIENT RESTING IN BED. A/OX1, CONFUSED. ON RA WITH OXYGEN SATURATION RANGING BETWEEN 92-96%. NO RESP DISTRESS NOTED, NO SOB NOTED. PATIENT IS ON A TELE MONITOR ; READING SR WITH HR IN THE LOW TO MID 60'S. NO SIGNS OF PAIN OR DISCOMFORT NOTED. IV TO LFA #22 PATENT AND INTACT, KEPT SALINE LOCK. BED AT LOW POSITION AND LOCKED WITH SIDE RAILS UP X 2 AND CALL LIGHT WITHIN REACH. ALL SAFETY MEASURES IN PLACE. COVID + PRECAUTIONS IN PLACE. WILL CONTINUE TO MONITOR PATIENT THROUGH OUT SHIFT.
--- NOTE | 2020-06-04 07:39 | NUR ---
RN CLOSING NOTES PATIENT REMAINS IN BED. NO RESP DISTRESS NOTED. O2 SAT AT 98 ON RA. NO SOB NOTED. TELE MONITOR SHOWS SR HR 62. NO SIGNS OF PAIN. SALINE LOCK ON LFA PATENT AND INTACT. ALL NEEDS ATTENDED. ALL SAFETY MEASURES IMPLEMENTED PER PROTOCOL. SIDE RAILS UP X 2. CALL LIGHT WITHIN REACH. BED LOCKED IN LOWEST POSITION. WILL ENDORSE TO NEXT SHIFT NURSE FOR DUNG.
[2020-06-04] MEDS: DEXAMETHASONE SOD PHOSPHATE 10 MG/ML VIAL IV SCH (09:43)
[2020-06-04] MEDS: AMIODARONE HCL 200 MG TABLET PO SCH (09:44)
[2020-06-04] MEDS: APIXABAN 5 MG TABLET PO SCH ×2 (09:46→16:44)
--- NOTE | 2020-06-04 19:19 | NUR ---
TELE DISCHARGE NOTES RECEIVED DISCHARGE ORDER FROM DR. DE LA TORRE. PT IN STABLE CONDITION FOR TRANSFER TO SNF. PATIENT WILL CONTINUE ON DECADRON 6MG PO QD X 3 DAYS. PT WILL GO TO [facility] IN THE [facility] IN [place], [place]. SPOKE WITH CHARGE NURSE ALEJANDRA AT [phone]- REPORT WAS GIVEN. INFORMED PATIENT OF DISCHARGE. NO FAMILY OR NEXT OF KIN ON FILE FOR THIS PATIENT TO REPORT OF DISCHARGE. MEDICATION, DISCHARGE INSTRUCTIONS AND EDUCATION PROVIDED. BELONGINGS CHECKED AND SIGNED WITH ANOTHER NURSE. SKIN CHECK DONE. NO F/C IN PLACE. IV TO LT HAND REMOVED. TELE MONITOR REMOVED AND PLACED TELE MONITOR AREA. ARM BAND REMOVED. PT IS RESTING IN BED AWAITING FOR AMBULANCE MOBILE UI/UX DESIGNER. ETA WAS 1800. PT CONTINUES WAITING. ENDORSED TO NIGHT NURSE FOR CONTINUITY OF CARE.
--- NOTE | 2020-06-04 19:35 | NUR ---
RN OPENING NOTES PATIENT RECEIVED RESTING IN BED A/O X1, CONFUSED. STABLE ON RA WITH BREATHING EVEN AND UNLABORED, NO SOB NOTED. NO SIGNS OF ACUTE DISTRESS. NO COMPLAINTS OF PAIN OR DISCOMFORT. TELE MONITOR, ID BAND, AND IV REMOVED FROM AM NURSE. DISCHARGE PAPER WORK COMPLETED BY AM NURSE. AWAITING TRANSPORT. SAFETY PRECAUTIONS IN PLACE WITH BED IN LOWEST POSITION, CALL LIGHT WITHIN REACH, BREAKS ON, SIDE RAILS UP, BED ALARM ON.
--- NOTE | 2020-06-04 20:07 | NUR ---
RECEIVED CALL FROM [facility]ER UPON DISCHARGE. CM WILL FOLLOW UP WITH TRANSPORTATION
--- NOTE | 2020-06-04 20:30 | NUR ---
SPOKE WITH PATIENTS NIECE, WHO HE LIVES WITH, ON PATIENT UPDATE. KATHYA (NIECE) [phone]
[2020-06-04] MEDS: TAMSULOSIN 0.4 MG CAP.SR.24H PO SCH (21:19)
--- NOTE | 2020-06-04 21:35 | NUR ---
CALLED BERTRAND PÉREZ TO FOLLOW UP WITH DIRECTOR CLINICAL OPERATIONS TIME AND TRANSPORTATION. NO ONE ANSWERED, VOICEMAIL LEFT.
--- NOTE | 2020-06-04 21:51 | NUR ---
CALLED [facility] AND SPOKE WITH WENDY ABOUT PATIENTS TRANSPORTATION, BUT HAS NO INFORMATION. FACILITY HAS NO CUT TIME FOR TRANSPORT. WILL CONTINUE TO FOLLOW UP WITH PATIENT DISCHARGE.
--- NOTE | 2020-06-04 21:56 | NUR ---
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 NO ANSWER, VOICE MAIL LEFT.
--- NOTE | 2020-06-04 23:38 | NUR ---
SPIRITS MODEL NOTES PATIENT DISCHARGED TO [place] IN THE [facility] WITH TRANSPORTERS. A/O X 1, CONFUSED, YELLING. PATIENT MEDICALLY STABLE, VITALS TAKEN BP 116/57, HR 74, RR 20. DISCHARGE PAPER WORK GIVEN TO TRANSPORTERS ALONG WITH PATIENT BELONGINGS. TELE MONITORS, IV, AND ID BAND REMOVED.
== END 2020-06-04 23:35 | DRG 177 ==
LOC: ER 04:42 → TRANSITION 05-28 01:10 → TELE1 05-29 21:19
PROVIDERS: ADMIT Internal Medicine; ATTEND Internal Medicine
DX: U07.1 COVID-19 (principal); G92 Toxic encephalopathy; J12.89 Other viral pneumonia; J96.01 Acute respiratory failure with hypoxia; F03.90 Unspecified dementia, unspecified severity, without behavioral disturbance, psychotic disturbance, mood disturbance, and anxiety; I48.0 Paroxysmal atrial fibrillation; Z79.899 Other long term (current) drug therapy; N40.0 Benign prostatic hyperplasia without lower urinary tract symptoms; F19.10 Other psychoactive substance abuse, uncomplicated; F09 Unspecified mental disorder due to known physiological condition; I67.2 Cerebral atherosclerosis; I70.0 Atherosclerosis of aorta
CPT/HCPCS: 36415; 36600; 70450-TC; 71045-TC; 80048-TC; 80053-TC; 80076-TC; 81001; 83615-TC; 84132-TC; 84443-TC; 85025-TC; 85378-TC; 86140-TC; 87081-TC; 93307-TC; C9803; G0378; G0480; J0282; J1100; J1200; J1630; J2060; J3490; J7030; J7060